=== PATIENT | female | born 1990 | race American Indian/Alaskan Native ===

== ENCOUNTER 2017-01-28 17:08 | Inpatient (IN) | payer MEDICAID, SELFPAY ==
[2017-01-28 19:10] LABS: Basophils % (Auto) 1.8 % (0.0-1.8); Eosinophils % (Auto) 0.1 % (0.0-4.3); Hematocrit 43.5 % (30.3-42.9); Hemoglobin 14.6 gm/dl (10.1-14.3); Mean Corpuscular HGB Conc 34 % (30-34); Mean Corpuscular Hemoglobin 30 pg (28-32); Mean Corpuscular Volume 90 fl (79-97); Platelet Count 211 K/mm3 (140-440); Red Blood Count 4.86 M/mm3 (3.65-5.03); Red Cell Distribution Width 14.5 % (13.2-15.2); White Blood Count 10.6 K/mm3 (4.5-11.0)
[2017-01-28 19:26] LABS: Anion Gap 16 mmol/L; Blood Urea Nitrogen 15 mg/dL (7-17); Calcium 9.7 mg/dL (8.4-10.2); Carbon Dioxide 27 mmol/L (22-30); Chloride 100.6 mmol/L (98-107); Glucose 88 mg/dL (65-100); Potassium 4.6 mmol/L (3.6-5.0); Sodium 139 mmol/L (137-145)
[2017-01-28 22:01] LABS: Bilirubin,Urine NEG (Negative); Blood,Urine NEG (Negative); Ketones,Urine NEG (Negative); Leukocyte Esterase,Urine NEG (Negative); Mucus,Urine 1+ /HPF; Nitrite,Urine NEG (Negative); Protein,Urine <15 mg/dL mg/dL (Negative); Urobilinogen,Urine < 2.0 mg/dL (<2.0)
[2017-01-28] MEDS ORDERED: MORPHINE IV ONE (22:36)
[2017-01-28] MEDS ORDERED: ZOFRAN IV ONE (22:36)
--- NOTE | 2017-01-28 22:40 | Emergency Department Report ---
HPI - General Chief Complaint: Urogenital-Female Time Seen by Provider: 01/28/17 22:23 - HPI HPI: Room 2 Is a 26-year-old female presenting with a chief complaint of right lower quadrant abdominal pain. Patient states her symptoms began yesterday with pain in the right lower quadrant described sharpened all in nature. Patient states the pain has been intermittent lasting hours. The patient admits to nausea and vomiting. Patient denies any history of fever. Patient denies vaginal bleeding or vaginal discharge. Patient states her last cycle occurred 2016 and was within normal limits. Location: Right Lower quadrant Duration: 2 days Quality: sharp and dull Severity: Moderate Modifying factors: [see above] Context: [see above] Mode of transportation: [not driving] ED Past Medical Hx - Past Medical History Hx Seizures: Yes (CHILDHOOD) Additional medical history: ovarian cyst. HYPOGLYCEMIA. ANEMIA - Surgical History Past Surgical History?: No Additional Surgical History: bilateral salpingectomy, left ovarian cystectomy tubo ovarian abscess surgically drained in the past - Family History Family history: no significant - Social History Smoking Status: Never Smoker Substance Use Type: None - Medications Home Medications: Home Medications Medication Instructions Recorded Confirmed Last Taken Type No Known Home Medications [No 01/28/17 01/28/17 Unknown History Reported Home Medications] ED Review of Systems ROS: Stated complaint: STOMACH/LWR ABD PAIN Other details as noted in HPI Comment: All other systems reviewed and negative Constitutional: denies: chills, fever Eyes: denies: eye pain, eye discharge, vision change ENT: denies: ear pain, throat pain Respiratory: denies: cough, wheezing Cardiovascular: denies: chest pain, palpitations Endocrine: no symptoms reported Gastrointestinal: abdominal pain, nausea, vomiting Genitourinary: denies: urgency, dysuria, discharge Musculoskeletal: denies: back pain, joint swelling, arthralgia Skin: denies: rash, lesions Neurological: denies: headache, weakness, paresthesias Psychiatric: denies: anxiety, depression Hematological/Lymphatic: denies: easy bleeding, easy bruising Physical Exam - Physical Exam Vital Signs: Vital Signs 01/28/17 18:35 Temperature 99.1 F Pulse Rate 78 Respiratory 18 Rate Blood Pressure 107/69 O2 Sat by Pulse 100 Oximetry Physical Exam: GENERAL: The patient is well-developed well-nourished female lying on stretcher not appearing to be in acute distress. [] HEENT: Normocephalic. Atraumatic. Extraocular motions are intact. Patient has moist mucous membranes. NECK: Supple. Trachea midline CHEST/LUNGS: Clear to auscultation. There is no respiratory distress noted. HEART/CARDIOVASCULAR: Regular. There is no tachycardia. There is no gallop rub or murmur. ABDOMEN: Abdomen is soft, with tenderness to palpation in the right lower quadrant. Patient has normal bowel sounds. There is no abdominal distention. SKIN: There is no rash. There is no edema. There is no diaphoresis. NEURO: The patient is awake, alert, and oriented. The patient is cooperative. The patient has normal speech MUSCULOSKELETAL: There is no CVA tenderness. There is no evidence of acute injury. ED Course Vital Signs 01/28/17 18:35 Temperature 99.1 F Pulse Rate 78 Respiratory 18 Rate Blood Pressure 107/69 O2 Sat by Pulse 100 Oximetry - Consultations Consultation #1: 01/29/17 00:52 Surgery paged 01/29/17 01:[address] Massey-performing a CT abdomen and pelvis with by mouth contrast only and repeating the CBC in the a.m. States he will consult on the patient but did have AERIAL GUNNER SUPERINTENDENT or hospitalist admit Consultation #2: 01/29/17 01:04 [employer] AERIAL GUNNER SUPERINTENDENT paged 01/29/17 01:11 Case discussed with nurse field technical assistant Marci Pereyra. States that Dr. Wilde is covering for them tonight. Dr Wilde paged 01/29/17 01:[address] Wilde- recommends hospitalist admit and he will consult ED Medical Decision Making - Lab Data Result diagrams: 01/28/17 18:51 01/28/17 18:51 Laboratory Tests 01/28/17 01/28/17 01/28/17 18:51 18:51 18:51 WBC 10.6 RBC 4.86 Hgb 14.6 H Hct 43.5 H MCV 90 MCH 30 MCHC 34 RDW 14.5 Plt Count 211 Lymph % (Auto) 16.1 Bea[place]gard % (Auto) 6.0 Eos % (Auto) 0.1 Baso % (Auto) 1.8 Lymph # 1.7 Bea[place]gard # 0.6 Eos # 0.0 Baso # 0.2 H Seg Neutrophils % 76.0 H Seg Neutrophils # 8.1 H Sodium 139 Potassium 4.6 Chloride 100.6 Carbon Dioxide 27 Anion Gap 16 BUN 15 Creatinine 0.6 L Estimated GFR > 60 BUN/Creatinine Ratio 25.00 Glucose 88 Calcium 9.7 HCG, Qual Negative Urine Color Urine Turbidity Urine pH Ur Specific Carson Urine Protein Urine Glucose (UA) Urine Ketones Urine Blood Urine Nitrite Urine Bilirubin Urine Urobilinogen Ur Leukocyte Esterase Urine WBC (Auto) Urine RBC (Auto) U Epithel Cells (Auto) Urine Mucus 01/28/17 Unknown WBC RBC Hgb Hct MCV MCH MCHC RDW Plt Count Lymph % (Auto) Bea[place]gard % (Auto) Eos % (Auto) Baso % (Auto) Lymph # Bea[place]gard # Eos # Baso # Seg Neutrophils % Seg Neutrophils # Sodium Potassium Chloride Carbon Dioxide Anion Gap BUN Creatinine Estimated GFR BUN/Creatinine Ratio Glucose Calcium HCG, Qual Urine Color Yellow Urine Turbidity Clear Urine pH 6.0 Ur Specific Carson 1.021 Urine Protein <15 mg/dl Urine Glucose (UA) Neg Urine Ketones Neg Urine Blood Neg Urine Nitrite Neg Urine Bilirubin Neg Urine Urobilinogen < 2.0 Ur Leukocyte Esterase Neg Urine WBC (Auto) 1.0 Urine RBC (Auto) 1.0 U Epithel Cells (Auto) < 1.0 Urine Mucus 1+ - Radiology Data Radiology results: report reviewed (CT abdomen pelvis, pelvic ultrasound), image reviewed (CT abdomen and pelvis, pelvic ultrasound) CT abdomen and pelvis (read by radiologist)-what appears to be the appendix is top normal in caliber at 6 mm. It is fluid-filled with mildly enhancing wall. No surrounding inflammation. There is overlap in the imaging appearance of normal and abnormal appendix. Consider further evaluation and follow-up if there is continued clinical concern for appendiceal pathology. I did 2 separate cystic lesions or large lobulated right ovarian/adnexal lesion. Moderate free pelvic fluid. Consider complex cystic lesion, consider possible ruptured ovarian cyst. Ileum this region is mildly fluid filled and prominent and rectosigmoid colon in this region as thick-walled. Consider reactive ileus/ enterocolitis. Consider pelvic ultrasound for further characterization if there is continued clinical concern. Pelvic ultrasound. This is read by radiologist)-left oophorectomy. Complex right ovarian cystic lesions felt to correspond to findings on CT scan. Consider complex cyst. Also consider process such as endometrioma. Cannot exclude underlying neoplastic etiology. MRI may be helpful for further characterization there is no indication to MRI. There does appear to be flow in the right adnexa. - Differential Diagnosis acute appendicitis, ovarian torsion Critical care attestation.: If time is entered above; I have spent that time in minutes in the direct care of this critically ill patient, excluding procedure time. ED Disposition Clinical Impression: Right lower quadrant abdominal pain, Right adnexal tenderness Disposition: OP ADMITTED IP TO THIS HOSP Is pt being admited?: Yes Does the pt Need Aspirin: No Condition: Fair Time of Disposition: 01:22 (hospitalist paged)
--- NOTE | 2017-01-29 00:09 | Cat Scan Report ---
FINAL REPORT PROCEDURE: CT ABDOMEN PELVIS W CON TECHNIQUE: Computerized axial tomography of the abdomen and pelvis was performed after the IV injection of iodinated nonionic contrast. HISTORY: Right lower quadrant abdominal pain. COMPARISON: CT scan dated 03/08/2013. Images available but report not available at this time. FINDINGS: Visualized lower thorax: No significant abnormality. Liver: Normal size and attenuation. Spleen: Normal size and attenuation. Gallbladder and biliary system: Normal. Pancreas: Normal. Adrenals: Normal. Kidneys: Normal. GI tract: The appendix measures 6 millimeters and is fluid-filled with enhancing wall, no surrounding stranding (axial image 122, coronal images 55-71). Mildly prominent and fluid-filled loops of ileum in the pelvis. Colon to the descending colon is filled with stool. Rectosigmoid colon is thick-walled. Lymph nodes and mesentery: Normal. Vasculature: Normal. Bladder: Normal. Reproductive organs: Either 2 separate cystic lesions or lobulated cystic lesion in the right pelvis/adnexal region measuring 8 x 3.4 centimeters. Peritoneum: Moderate free fluid in the pelvis. Musculoskeletal structures: Slight L5-S1 disc bulge. Other: None. IMPRESSION: What appears to be the appendix is top normal in caliber at 6 millimeters (normal 6 millimeters or less). It is fluid-filled with mildly enhancing wall. No surrounding inflammation. There is overlap in the imaging appearance of normal and abnormal appendix. Consider further evaluation and followup if there is continued clinical concern for appendiceal pathology. Either 2 separate cystic lesions or a large lobulated right ovarian/adnexal lesion. Moderate free pelvic fluid. Consider complex cystic lesion, consider possible ruptured ovarian cyst. Ileum this region is mildly fluid-filled and prominent, and rectosigmoid colon in this region is thick-walled. Consider reactive ileus/enterocolitis. Consider pelvic ultrasound for further characterization if there is continued clinical concern.
--- NOTE | 2017-01-29 00:46 | Ultrasound Report ---
FINAL REPORT PROCEDURE: US transabdominal and transvaginal TECHNIQUE: Real-time transabdominal sonography in multiple planes of the pelvis was performed. The pelvic structures, especially the ovaries were not optimally visualized. Transvaginal sonography was then performed to better evaluate the structures and/or abnormalities described below with image documentation. CPT 43336 and 26599 HISTORY: Right pelvic pain. COMPARISON: CT scan dated 01/28/2017. FINDINGS: UTERUS Size: 9.1 x 4.8 centimeters. Endometrial thickness: 9.4 millimeters. Orientation: anteverted. Cervix: Normal. Fibroids/masses: None. RIGHT Ovary: 6 x 5.3 x 4.7 centimeters. Appearance: Complex heterogeneous 4.2 x 3 x 3.8 centimeter hypoechoic lesion with striations. Second 2.7 x 1.9 x 2.1 centimeter similar complex heterogeneous lesion. There does appear to be flow in the right adnexa. LEFT Ovary: Left oophorectomy. Pelvic fluid: Moderate free pelvic fluid. Other: None. IMPRESSION: Left oophorectomy. Complex right ovarian cystic lesions felt to correspond to findings on CT scan. Consider complex cyst. Also consider process such is endometrioma. Cannot exclude underlying neoplastic etiology. MRI may be helpful for further characterization if there is no contraindication to MRI. Moderate free pelvic fluid.
--- NOTE | 2017-01-29 00:47 | Ultrasound Report ---
FINAL REPORT PROCEDURE: US transabdominal and transvaginal TECHNIQUE: Real-time transabdominal sonography in multiple planes of the pelvis was performed. The pelvic structures, especially the ovaries were not optimally visualized. Transvaginal sonography was then performed to better evaluate the structures and/or abnormalities described below with image documentation. CPT 46884 and [id number] HISTORY: Right pelvic pain. COMPARISON: CT scan dated 01/28/2017. FINDINGS: UTERUS Size: 9.1 x 4.8 centimeters. Endometrial thickness: 9.4 millimeters. Orientation: anteverted. Cervix: Normal. Fibroids/masses: None. RIGHT Ovary: 6 x 5.3 x 4.7 centimeters. Appearance: Complex heterogeneous 4.2 x 3 x 3.8 centimeter hypoechoic lesion with striations. Second 2.7 x 1.9 x 2.1 centimeter similar complex heterogeneous lesion. There does appear to be flow in the right adnexa. LEFT Ovary: Left oophorectomy. Pelvic fluid: Moderate free pelvic fluid. Other: None. IMPRESSION: Left oophorectomy. Complex right ovarian cystic lesions felt to correspond to findings on CT scan. Consider complex cyst. Also consider process such is endometrioma. Cannot exclude underlying neoplastic etiology. MRI may be helpful for further characterization if there is no contraindication to MRI. Moderate free pelvic fluid.
--- NOTE | 2017-01-29 05:18 | Cat Scan Report ---
FINAL REPORT EXAM: CT ABDOMEN PELVIS WO CON HISTORY: right lower quadrant abdominal pain TECHNIQUE: Standard delayed enhanced CT of the abdomen and pelvis. Coronal and sagittal reconstruction was also performed. Contrast: Readi-Cat given as oral. Patient had an enhanced CT performed several hours previous (100 cc Omnipaque 300 given IV) with excreted tracer is still seen on the current exam. PRIORS: CT a/P 01/28/2017 at 2312 hours, pelvic ultrasound 01/28/2017 FINDINGS: Within the abdomen, the liver, spleen, pancreas, adrenal glands, and kidneys are unremarkable. The gallbladder now contains high density material consistent with vicarious excretion of previous contrast. No evidence for retroperitoneal or pelvic lymphadenopathy is seen. The bowel loops have normal caliber. No soft tissue mass, loculated fluid collection, inflammatory change, or free air is seen within the abdomen or pelvis. The appendix is normal. No inflammatory process in the area of the cecum is seen. Within the pelvis, the bladder is filled with excreted contrast but is otherwise unremarkable. The uterus is normal. The cystic lesions identified in the pelvis previously are again noted, similar to the previous study. No evidence for mass or lymphadenopathy is seen in the pelvis. Low-density free fluid in the pelvis is again seen. Images through the upper abdomen include the lung bases which are expanded and clear. There is a small low-density pericardial effusion present anteriorly. Bony structures show no focal abnormalities and are intact. IMPRESSION: No significant interval change. Pelvic cystic lesions and a small amount of fluid in the pelvis are again noted, unchanged.
--- NOTE | 2017-01-29 06:08 | Admit Criteria Form ---
Admission Criteria Documentation: ABDOMINAL PAIN Clinical Indications for Admission to Inpatient Care (Place 'X' for any and all applicable criteria): Admission is indicated for ANY ONE of the following(1)(2)(3)(4)(5): [x ]I. Inpatient admission required rather than observation care (Also use Abdominal Pain: Observation Care, as appropriate) because of ANY ONE of the following: [ ]a) Severe pain requiring acute inpatient management [ ]b) Identification of etiology/finding that requires inpatient care (eg, aortic dissection, free air) [ ]c) Absent bowel sounds with complete ileus(6) [ ]d) Suspected toxic megacolon [ ]e) Severe electrolyte abnormalities requiring inpatient care [ ]f) High fever or infection requiring inpatient admission as indicated by ANY ONE of following(7)(8): [ ] i) Appropriate outpatient or observational care antimicrobial treatment unavailable, not effective, or not feasible [ ] ii) Documented bacteremia [ ] iii) Temperature > 104.9 degrees F (oral) [ ] iv) T >103.1 F (oral) or < 96.8 F(rectal) that does not respond to all emergency treatment measures [ ]g) Signs of intestinal obstruction [B] [ ]h) Hemodynamic instability [ ]i) IV fluid to replace significant ongoing losses (greater than 3 L/m2 per day) (12)(13) [ ]j) Percutaneous or open drainage (eg, abscess, biliary tract ) procedures [ ]k) Parenteral nutrition regimen that must be implemented on inpatient basis [x ]l) Other condition,treatment or monitoring requiring inpatient admission. [ ]II. Peritoneal signs present [ ]III. Surgery needed that cannot be performed on an ambulatory basis. [ ]IV. Evaluation requires patient to not eat or drink for extended period ( eg, more than 24 hours). [ ]V. Contraindications and/or Inappropriate clinical situations for Observational Care in patients with abdominal pain, when ANY ONE of the following is required: [ ]a) Thorough evaluation is required to prevent catastrophic events due to delays in diagnosing (e.g.Mesenteric ischemia) 1,3 [ ]b) Patient with severe pathology or with chronic symptoms unlikely to improve in the ED stay (3) [ ]. General contraindications and/or Inappropriate clinical situations for Observational Care in patients with abdominal pain, when ANY ONE of the following is required: [ ]a) Prediction of prolongation of LOS based on ANY ONE of the following may be considered as a contraindication for observational care 2, 3, 4, 5, 6, 7, 8, 9, 10, 11 [ ]i) Age > 65 yrs. [ ]ii) Patient arriving by ambulance [ ]iii) Patient with high acuity [ ]iv) Patient requiring vital sign monitoring [ ]v) Patient on IV medication [ ]b) Systolic blood pressures 180mmHg 3,12 [ ]c) Patient with altered mental status including delirium and other alteration of consciousness, (3) [ ]d) Patient whose discharge disposition will be to a retirement home or rehabilitation home should not be managed in Emergency Department Observation Unit. CMS rule requires 3 days hospital stay before such placement.3,13 [ ]e) Patient with failure to thrive due to broad array of etiologies 3,16,17 [ ]f) Inability to ambulate 3,14 Extended stay beyond goal length of stay may be needed for(2)(3): [ ]a) Persistent abdominal pain with suspected intra-abdominal process [ ]b) Diagnosed condition requiring continued stay (e.g., pancreatitis, complicated diverticulitis) [ ]c) Surgery (e.g., colectomy) The original [employer] content created by [employer] has been revised. The portions of the content which have been revised are identified through the use of italic text or in bold, and [facility] has neither reviewed nor approved the modified material.All other unmodified content is copyright [employer]. Please see references footnoted in the original [employer] edition 2016
[2017-01-29] MEDS ORDERED: DULCOLAX PR PRN (07:35)
[2017-01-29] MEDS ORDERED: MORPHINE IV PRN (07:35)
[2017-01-29] MEDS ORDERED: TYLENOL PO PRN (07:35)
[2017-01-29] MEDS ORDERED: MILK OF MAGNESIA PO PRN (07:35)
[2017-01-29] MEDS ORDERED: DILAUDID IV PRN (07:35)
[2017-01-29] MEDS: ZOFRAN IV PRN ×2 (10:40→20:44)
[2017-01-29] MEDS: NACL 0.9% 1000 ML 1,000 ML IV SCH ×2 (10:41→22:30)
[2017-01-29 10:56] LABS: INR 1.14 (0.87-1.13)
--- NOTE | 2017-01-29 11:25 | Progress Note ---
Assessment and Plan full consult dictated 26 y/o female past hx of PID. s/p L salpingo ophorectomy in past secondary to TOA. s/p R salpingectomy. c/o RLQ abd pain PE - pain more so in R pelvic region than in RLQ CT abd - large R ovarian cyst with fluid in cul-de-sac. appendix neg surrounding inflammation r/o R ovarian pathology await freight adjuster eval Selected Entries 01/29/17 10:30 Temperature 98.7 F Pulse Rate [ 58 L From Monitor] Respiratory 18 Rate Blood Pressure 104/66 [Left Arm] Laboratory Tests 01/28/17 01/28/17 01/28/17 18:51 18:51 Unknown WBC 10.6 Hgb 14.6 H Hct 43.5 H PT INR Sodium 139 Potassium 4.6 Chloride 100.6 Carbon Dioxide 27 Anion Gap 16 BUN 15 Creatinine 0.6 L Urine Turbidity Clear 01/29/17 10:01 WBC Hgb Hct PT 14.5 INR 1.14 H Sodium Potassium Chloride Carbon Dioxide Anion Gap BUN Creatinine Urine Turbidity Objective Vital Signs - 12hr 01/29/17 01/29/17 01/29/17 07:45 09:18 10:30 Temperature 98.5 F 98.7 F Pulse Rate 65 Pulse Rate [ 58 L From Monitor] Respiratory 16 18 Rate Blood Pressure 104/66 [Left Arm] Blood Pressure 97/53 [Left] O2 Sat by Pulse 100 99 Oximetry - Labs 01/28/17 18:51 01/28/17 18:51
--- NOTE | 2017-01-29 12:31 | History and Physical Report ---
History of Present Illness Date of examination: 01/29/17 Date of admission: 01/29/17 07:35 Chief complaint: Right lower quadrant pain History of present illness: Patient is a 26 year old female with hx of Tubo-ovarian abscess surgically drained in the past, Bilateral salpingectomy who presents to the hospital with complaints right lower quadrant pain which has been going for about 2 weeks now worse in the last 24 hours from difficult to come to the hospital she describes excruciating 10 over 10 in intensity with no radiation. She denies any aggravating or alleviating factors. She denies prior episodes. She denies any fever, nausea, vomiting or diarrhea. She Discussed the pain as dull and sharp. She denies any vaginal bleeding or vaginal discharge. She did report 1 episode of blood in her stool but states that this is remote smoking a month ago. Has not recurred since then. ROS Constitutional: Reports dizziness on standing. No fever, fatigue or weight loss. Skin: No rash. Eyes: No recent vision problems or eye pain. ENT: No congestion, ear pain, or sore throat. Endocrine: No thyroid problems. Cardiovascular: No chest pain. Respiratory: No cough, shortness of breath, congestion, or wheezing. Gastrointestinal: Positive abdominal pain but not nausea, vomiting or diarrhea. Genitourinary: No dysuria. Musculoskeletal: No joint swelling. Neurologic: No seizures. Hematologic: No unusual bruising or bleeding. Psychiatric: No psychiatric problems, hallucinations or depression. All other systems reviewed and otherwise negative. Past History Past Medical History: seizures (in childhood) Past Surgical History: Other (bilateral salpingectomy, left ovarian cystectomy tubo ovarian abscess surgically drained in the past) Social history: lives with family, full code. denies: smoking, alcohol abuse, prescription drug abuse Family history: no significant family history Medications and Allergies Allergies Allergy/AdvReac Type Severity Reaction Status Date / Time metronidazole [From Flagyl] Allergy Hives Verified 01/28/17 18:31 Home Medications Medication Instructions Recorded Confirmed Last Taken Type No Known Home Medications [No 01/28/17 01/28/17 Unknown History Reported Home Medications] Active Meds: Active Medications Acetaminophen (Tylenol) 650 mg PO Q4H PRN PRN Reason: Pain MILD(1-3)/Fever >100.5/[place] Bisacodyl (Dulcolax) 10 mg AR QDAY PRN PRN Reason: Constipation unrelieved by MOM Hydromorphone HCl (Dilaudid) 0.5 mg IV Q3H PRN PRN Reason: Pain, Moderate (4-6) Sodium Chloride (Nacl 0.9% 1000 Ml) 1,000 mls @ 150 mls/hr IV DIRECT ALLEGRA Last Admin: 01/29/17 10:41 Dose: 150 mls/hr Magnesium Hydroxide (Milk Of Magnesia) 30 ml PO Q4H PRN PRN Reason: Constipation Morphine Sulfate (Morphine) 2 mg IV Q4H PRN PRN Reason: Pain, Moderate (4-6) Last Admin: 01/29/17 10:40 Dose: 2 mg Ondansetron HCl (Zofran) 4 mg IV Q8H PRN PRN Reason: N/V unrelieved by Reglan Last Admin: 01/29/17 10:40 Dose: 4 mg Exam - Physical Exam Narrative exam: VITAL SIGNS: Reviewed. GENERAL: The patient appeared well nourished and normally developed. Vital signs as documented. HEAD: No signs of head trauma. EYES: Pupils are equal. Extraocular motions intact. EARS: Hearing grossly intact. MOUTH: Oropharynx is normal. NECK: No adenopathy, no JVD. CHEST: Chest with clear breath sounds bilaterally. No wheezes, rales, or rhonchi. CARDIAC: Regular rate and rhythm. S1 and S2, without murmurs, gallops, or rubs. VASCULAR: No Edema. Peripheral pulses normal and equal in all extremities. ABDOMEN: Soft, right lower quadrant tenderness. No sign of distention. No rebound or guarding, and no masses palpated. Bowel Sounds normal. MUSCULOSKELETAL: Good range of motion of all major joints. Extremities without clubbing, cyanosis or edema. NEUROLOGIC EXAM: Alert and oriented x 3. No focal sensory or strength deficits. Speech normal. Follows commands. PSYCHIATRIC: Mood normal. SKIN: No rash or lesions. - Constitutional Vitals: Temp Pulse Resp BP Pulse Ox 98.7 F 58 L 18 104/66 99 01/29/17 10:30 01/29/17 10:30 01/29/17 10:30 01/29/17 10:30 01/29/17 10:30 Results - Labs CBC & Chem 7: 01/28/17 18:51 01/28/17 18:51 Labs: Laboratory Last Values WBC 10.6 K/mm3 (4.5-11.0) 01/28/17 18:51 RBC 4.86 M/mm3 (3.65-5.03) 01/28/17 18:51 Hgb 14.6 gm/dl (10.1-14.3) H 01/28/17 18:51 Hct 43.5 % (30.3-42.9) H 01/28/17 18:51 MCV 90 fl (79-97) 01/28/17 18:51 MCH 30 pg (28-32) 01/28/17 18:51 MCHC 34 % (30-34) 01/28/17 18:51 RDW 14.5 % (13.2-15.2) 01/28/17 18:51 Plt Count 211 K/mm3 (140-440) 01/28/17 18:51 Lymph % (Auto) 16.1 % (13.4-35.0) 01/28/17 18:51 [place] % (Auto) 6.0 % (0.0-7.3) 01/28/17 18:51 Eos % (Auto) 0.1 % (0.0-4.3) 01/28/17 18:51 Baso % (Auto) 1.8 % (0.0-1.8) 01/28/17 18:51 Lymph # 1.7 K/mm3 (1.2-5.4) 01/28/17 18:51 [place] # 0.6 K/mm3 (0.0-0.8) 01/28/17 18:51 Eos # 0.0 K/mm3 (0.0-0.4) 01/28/17 18:51 Baso # 0.2 K/mm3 (0.0-0.1) H 01/28/17 18:51 Seg Neutrophils % 76.0 % (40.0-70.0) H 01/28/17 18:51 Seg Neutrophils # 8.1 K/mm3 (1.8-7.7) H 01/28/17 18:51 PT 14.5 Sec. (12.2-14.9) 01/29/17 10:01 INR 1.14 (0.87-1.13) H 01/29/17 10:01 Sodium 139 mmol/L (137-145) 01/28/17 18:51 Potassium 4.6 mmol/L (3.6-5.0) 01/28/17 18:51 Chloride 100.6 mmol/L (98-107) 01/28/17 18:51 Carbon Dioxide 27 mmol/L (22-30) 01/28/17 18:51 Anion Gap 16 mmol/L 01/28/17 18:51 BUN 15 mg/dL (7-17) 01/28/17 18:51 Creatinine 0.6 mg/dL (0.7-1.2) L 01/28/17 18:51 Estimated GFR > 60 ml/min 01/28/17 18:51 BUN/Creatinine Ratio 25.00 % 01/28/17 18:51 Glucose 88 mg/dL (65-100) 01/28/17 18:51 Calcium 9.7 mg/dL (8.4-10.2) 01/28/17 18:51 HCG, Qual Negative (Negative) 01/28/17 18:51 Urine Color Yellow (Yellow) 01/28/17 Unknown Urine Turbidity Clear (Clear) 01/28/17 Unknown Urine pH 6.0 (5.0-7.0) 01/28/17 Unknown Ur Specific [place] 1.021 (1.003-1.030) 01/28/17 Unknown Urine Protein <15 mg/dl mg/dL (Negative) 01/28/17 Unknown Urine Glucose (UA) Neg mg/dL (Negative) 01/28/17 Unknown Urine Ketones Neg mg/dL (Negative) 01/28/17 Unknown Urine Blood Neg (Negative) 01/28/17 Unknown Urine Nitrite Neg (Negative) 01/28/17 Unknown Urine Bilirubin Neg (Negative) 01/28/17 Unknown Urine Urobilinogen < 2.0 mg/dL (<2.0) 01/28/17 Unknown Ur Leukocyte Esterase Neg (Negative) 01/28/17 Unknown Urine WBC (Auto) 1.0 /HPF (0.0-6.0) 01/28/17 Unknown Urine RBC (Auto) 1.0 /HPF (0.0-6.0) 01/28/17 Unknown U Epithel Cells (Auto) < 1.0 /HPF (0-13.0) 01/28/17 Unknown Urine Mucus 1+ /HPF 01/28/17 Unknown - Imaging and Cardiology CT scan - abdomen: image reviewed (adnexal mass on the right) Assessment and Plan Assessment and plan: Patient is a 26 year old female with hx of Tubo-ovarian abscess surgically drained in the past, Bilateral salpingectomy who presents to the hospital with complaints right lower quadrant pain which has been going for about 2 weeks now worse in the last 24 hours from difficult to come to the hospital she describes excruciating 10 over 10 in intensity with no radiation. She denies any aggravating or alleviating factors. She denies prior episodes. She denies any fever, nausea, vomiting or diarrhea. She Discussed the pain as dull and sharp. She denies any vaginal bleeding or vaginal discharge. She did report 1 episode of blood in her stool but states that this is remote smoking a month ago. Has not recurred since then. * Right lower quadrant abdominal pain * Also unable Reactive ileus/enterocolitis per CT findings * Possible complex cystic lesion versus ruptured ovarian cyst * Status post left oophorectomy Plan * Supportive care, IV fluids, pain control * Surgical and HUMAN [employer]OURCES MGR consulted * If any fever develops will start abx, for now no indication. * DVT/GI prophylaxis * Advance Directives: Yes Plan of care discussed with patient/family: Yes
--- NOTE | 2017-01-29 17:22 | Consultation ---
History of Present Illness Consult date: 01/29/17 Reason for consult: pelvic pain, ovarian cyst History of present illness: Asked to see this 26-year-old G0 who presented with right lower quadrant abdominal pain x ~ 48 hrs. pain initially achy, dull and constant. Initially severe but appears improved at this time. No fever or chills currently no nausea vomiting. She gives a history of associated diarrhea and gastritis with this pain. CT abdomen obtained shows normal appendix which is fluid-filled was mildly enhancing wall. Surrounding inflammation. Overlapping imaging from normal and abnormal appendix. Continued concern for appendiceal pathology. Either to separate cystic lesions or large lobulated right ovarian lesion. Moderate free fluid. Consider complex cystic lesion. In this region is mildly fluid-filled and prominent, consider rectosigmoid colon and the Silastic was considered reactive ileus enterocolitis Ultrasound obtained shows a 9 cm uterus with 9.4 mm stripe. Right ovary shows complex heterogeneous 4 cm hyperechoic lesion with striations. Another 3 cm complex heterogeneous lesion is also seen. As appeared to be flow in the right adnexa Moderate free fluid is seen. Impression is complex right ovarian cystic lesion felt to correspond to find in in CT. Consider complex cyst also consider endometrioma cannot exclude underlying neoplastic etiology MRI may be helpful. She is being seen by Gen surgery Past History Past Medical History: other (Gastritis) Past Surgical History: CRM FUNCTIONAL ANALYST/uterine surgery (Laparotomy for ?TOA ?Ovarian cystectomy, Bilateral salpingectomy via laparotomy) CRM FUNCTIONAL ANALYST History: chlamydia, gonorrhea. denies: hepatitis B, hepatitis C, HIV Family/Genetic History: cancer (Mother with uterine cancer status post chemotherapy, aunts and grandmother with breast cancer) Social history: , full code. denies: smoking, alcohol abuse, prescription drug abuse, IV drug use - Obstetrical History : 0 Medications and Allergies Allergies Allergy/AdvReac Type Severity Reaction Status Date / Time metronidazole [From Flagyl] Allergy Hives Verified 01/28/17 18:31 Home Medications Medication Instructions Recorded Confirmed Last Taken Type Ibuprofen [Motrin 600 MG tab] 600 mg PO Q8H PRN #30 tablet 01/29/17 Unknown Rx oxyCODONE /ACETAMINOPHEN [Percocet 1 tab PO Q6HR PRN #30 tablet 01/29/17 Unknown Rx 5/325] Active Meds: Active Medications Acetaminophen (Tylenol) 650 mg PO Q4H PRN PRN Reason: Pain MILD(1-3)/Fever >100.5/[place] Bisacodyl (Dulcolax) 10 mg GA QDAY PRN PRN Reason: Constipation unrelieved by MOM Hydromorphone HCl (Dilaudid) 0.5 mg IV Q3H PRN PRN Reason: Pain, Moderate (4-6) Last Admin: 01/29/17 15:32 Dose: 0.5 mg Sodium Chloride (Nacl 0.9% 1000 Ml) 1,000 mls @ 150 mls/hr IV DIRECT ALLEGRA Last Admin: 01/29/17 10:41 Dose: 150 mls/hr Magnesium Hydroxide (Milk Of Magnesia) 30 ml PO Q4H PRN PRN Reason: Constipation Morphine Sulfate (Morphine) 2 mg IV Q4H PRN PRN Reason: Pain, Moderate (4-6) Last Admin: 01/29/17 10:40 Dose: 2 mg Ondansetron HCl (Zofran) 4 mg IV Q8H PRN PRN Reason: N/V unrelieved by Reglan Last Admin: 01/29/17 10:40 Dose: 4 mg Tramadol HCl (Ultram) 50 mg PO Q6H PRN PRN Reason: Pain, Moderate (4-6) Review of Systems Constitutional: no fever, no chills Cardiovascular: no chest pain, no syncope, no lightheadedness, no shortness of breath, no dyspnea on exertion Respiratory: no cough, no shortness of breath, no dyspnea on exertion Gastrointestinal: abdominal pain, no nausea, no vomiting - Vital Signs Vital signs: Vital Signs Temp Pulse Resp BP Pulse Ox 99.1 F 78 18 107/69 100 01/28/17 18:35 01/28/17 18:35 01/28/17 18:35 01/28/17 18:35 01/28/17 18:35 Temp Pulse Resp BP Pulse Ox 98.7 F 57 L 18 101/58 99 01/29/17 14:25 01/29/17 14:25 01/29/17 14:25 01/29/17 14:25 01/29/17 10:30 - Physical Exam Cardiovascular: Regular rate, Normal S1, Normal S2 Lungs: Positive: Clear to auscultation, Normal air movement Abdomen: Positive: normal appearance, soft, tenderness (mild suprapubic tenderness on palpation). Negative: guarding, rigidity Adnexa: both: normal Results Result Diagrams: 01/28/17 18:51 01/28/17 18:51 Abnormal lab results 01/29/17 Range/Units 10:01 INR 1.14 H (0.87-1.13) All other labs normal. Assessment and Plan A: 26-year-old G0 with right ovarian cyst P: -Patient has 2 individual cysts on her Right ovary measuring ~ 4 cm and ~ 2 cm respectively. Appears to have normal flow but striations noted. Discussed above in detail with the patient and her partner. Although risk of malignancy is low, she has positive family history of uterine malignancy (her mother). I have Ordered CA-125 which should be back in 48-72 hours. Informed her that if CA -125 is negative, then I would recommend repeating an ultrasound in 4-6 weeks. If she has a persistent cyst then I would recommend ovarian cystectomy, note that she only has one ovary remaining. -Patient and her partner have agreed to this. I advised she call [facility]/ CRM FUNCTIONAL ANALYST or her most current CRM FUNCTIONAL ANALYST provider for scheduled follow-up [place]. [facility] CRM FUNCTIONAL ANALYST will have access to records and will be able to review her CA-125 result. -Patient is clear from CRM FUNCTIONAL ANALYST standpoint for discharge home, have left a prescription for Percocet in the patient's chart. -Thanks for the consult, please call with questions. - Patient Problems (1) Ovarian cyst Current Visit: Yes Status: Acute
[2017-01-29] MEDS: ULTRAM PO PRN (22:34)
[2017-01-30] MEDS: NACL 0.9% 1000 ML 1,000 ML IV SCH ×2 (03:55→10:39)
--- NOTE | 2017-01-30 07:18 | Consultation ---
REASON FOR CONSULTATION: Rule out appendicitis. HISTORY OF PRESENT ILLNESS: The patient is a 26-year-old healthy female who presented to the Emergency Room with recent onset of right lower quadrant abdominal pain accompanied by nausea and vomiting. Denies any vaginal discharge, dysuria or fever. PAST MEDICAL HISTORY: Negative. PAST SURGICAL HISTORY: Status post PID in the past. The patient is status post left salpingo-oophorectomy secondary to tubo-ovarian abscess. Also, status post right salpingectomy again apparently related to pelvic inflammatory disease episode. ALLERGIES: ALLERGIC TO FLAGYL, WHICH CAUSES HER HIVES. MEDICATIONS: Takes no medications. FAMILY HISTORY: Negative. SOCIAL HISTORY: Denies any smoking or drinking. REVIEW OF SYSTEMS: Noncontributory other than what was previously mentioned. PHYSICAL EXAMINATION: GENERAL: At this time reveals the patient to be awake, alert, cooperative. At this time, states she is \\"feeling better.\\" VITAL SIGNS: Show her to be afebrile with a temperature of 98.7, blood pressure 104/66, pulse of 58, respirations of 18. ABDOMEN: Examination of the abdomen reveals to be flat and soft. There is some localized tenderness, but more so over the right pelvic area and then the right lower quadrant. Bowel sounds are present. LABORATORY DATA: Lab work at present includes a CBC which shows a white count of 10.6, H and H is 14.6 and 43/5. Electrolytes are essentially within normal limits. Urinalysis is clear. A CT scan of the abdomen has been performed, which I have reviewed with the radiologist. The appendix itself does not show any surrounding inflammation, no surrounding inflammation either is noted around the cecum. There is a large right ovarian cyst noted. Some fluid was also noted in the cul-de-sac, possibly secondary to rupturing of a hemorrhagic cyst. ASSESSMENT AND PLAN: At this time is that of a 26-year-old female, lower pelvic pain does not appear to be appendicitis at this time. Rule out possible ovarian pathology as source of pain. Awaiting CLINICAL NURSING PROFESSOR evaluation. I will follow with you. Thank you very much for consultation. JOB# [id number] FP/NTS
[2017-01-30] MEDS: ULTRAM PO PRN ×2 (07:31→13:25)
[2017-01-30 07:35] LABS: Basophils % (Auto) 0.5 % (0.0-1.8); Eosinophils % (Auto) 0.5 % (0.0-4.3); Hematocrit 37.1 % (30.3-42.9); Hemoglobin 12.1 gm/dl (10.1-14.3); Mean Corpuscular HGB Conc 33 % (30-34); Mean Corpuscular Hemoglobin 29 pg (28-32); Mean Corpuscular Volume 90 fl (79-97); Platelet Count 176 K/mm3 (140-440); Red Blood Count 4.12 M/mm3 (3.65-5.03); Red Cell Distribution Width 14.2 % (13.2-15.2); White Blood Count 8.4 K/mm3 (4.5-11.0)
--- NOTE | 2017-01-30 07:48 | Discharge Summary ---
Providers - Providers Date of Admission: 01/29/17 07:35 Date of discharge: 01/30/17 Attending physician: NISHI BERRY Primary care physician: [facility] Hospitalization Condition: Fair Hospital course: Patient is a 26 year old female with hx of Tubo-ovarian abscess surgically drained in the past, Bilateral salpingectomy who presents to the hospital with complaints right lower quadrant pain which has been going for about 2 weeks now worse in the last 24 hours from difficult to come to the hospital she describes excruciating 10 over 10 in intensity with no radiation. She denies any aggravating or alleviating factors. She denies prior episodes. She denies any fever, nausea, vomiting or diarrhea. She Discussed the pain as dull and sharp. She denies any vaginal bleeding or vaginal discharge. She did report 1 episode of blood in her stool but states that this is remote smoking a month ago. Has not recurred since then. CT abdomen obtained shows normal appendix which is fluid-filled was mildly enhancing wall. Surrounding inflammation. Overlapping imaging from normal and abnormal appendix. Continued concern for appendiceal pathology. Either to separate cystic lesions or large lobulated right ovarian lesion. Patient had ultrasound which showed a 9 cm uterus with 9.4 mm stripe. Right ovary shows complex heterogeneous 4 cm hyperechoic lesion with striations. Another 3 cm complex heterogeneous lesion is also seen. As appeared to be flow in the right adnexa. Patient was seen by STEREOTYPER HELPER which felt that patient could be managed as an outpatient. Patient had CA-125 drawn and will follow up as an outpatient. Patient will be sent home today with adequate pain control and will follow with STEREOTYPER HELPER. Patient was evaluated by surgery which felt that there was no acute pathology with the appendix. Disposition: DISCHARGED TO HOME OR SELFCARE Core Measure Documentation - Palliative Care Palliative Care/ Comfort Measures: Not Applicable - Core Measures Any of the following diagnoses?: none Exam - Constitutional Vitals: Temp Pulse Resp BP Pulse Ox 99.0 F 58 L 16 93/55 95 01/30/17 00:18 01/30/17 00:18 01/30/17 00:18 01/30/17 00:18 01/30/17 00:18 General appearance: Present: mild distress - EENT Eyes: Present: PERRL, EOM intact ENT: hearing intact, clear oral mucosa - Neck Neck: Present: supple, normal ROM - Respiratory Respiratory effort: normal Respiratory: bilateral: CTA - Cardiovascular Rhythm: regular Heart Sounds: Present: S1 & S2 - Extremities Extremities: no ischemia, No edema - Abdominal General gastrointestinal: Present: soft, non-tender, non-distended, normal bowel sounds - Musculoskeletal Musculoskeletal: strength equal bilaterally - Psychiatric Psychiatric: appropriate mood/affect, intact judgment & insight - Neurologic Neurologic: CNII-XII intact, moves all extremities Plan Activity: advance as tolerated Weight Bearing Status: Weight Bear as Tolerated Diet: low fat, low cholesterol, low salt Follow up with: PRIMARY CAREMD [Primary Care Provider] - 7 Days JONATHAN DIANA MD [Staff Physician] - 7 Days Prescriptions: Ibuprofen [Motrin 600 MG tab] 600 mg PO Q8H PRN #30 tablet PRN Reason: Pain oxyCODONE /ACETAMINOPHEN [Percocet 5/325] 1 tab PO Q6HR PRN #30 tablet PRN Reason: Pain
[2017-01-30 07:49] LABS: Anion Gap 15 mmol/L; BUN/Creatinine Ratio 16.66; Blood Urea Nitrogen 10 mg/dL (7-17); Calcium 8.1 mg/dL (8.4-10.2); Carbon Dioxide 23 mmol/L (22-30); Chloride 106.4 mmol/L (98-107); Glucose 80 mg/dL (65-100); Potassium 4.3 mmol/L (3.6-5.0); Sodium 140 mmol/L (137-145)
[2017-01-30 08:49] VITALS: BP 92/55
--- NOTE | 2017-01-30 13:59 | Progress Note ---
Assessment and Plan Pt feeling well without compl. kendal diet Abd soft wbc 8.4 Immigration Lawyer eval noted surgically stable f/u with Immigration Lawyer Selected Entries 01/30/17 08:00 Temperature 98.3 F Pulse Rate [ 51 L Apical] Blood Pressure 92/55 [Left Arm] Laboratory Tests 01/30/17 07:15 WBC 8.4 Hgb 12.1 Hct 37.1 D Objective Vital Signs - 12hr 01/30/17 08:00 Temperature 98.3 F Pulse Rate [ 51 L Apical] Respiratory 18 Rate Blood Pressure 92/55 [Left Arm] O2 Sat by Pulse 100 Oximetry - Labs 01/30/17 07:15 01/30/17 07:15 Diabetes panel 01/30/17 Range/Units 07:15 Sodium 140 (137-145) mmol/L Potassium 4.3 (3.6-5.0) mmol/L Chloride 106.4 (98-107) mmol/L Carbon Dioxide 23 (22-30) mmol/L BUN 10 (7-17) mg/dL Creatinine 0.6 L (0.7-1.2) mg/dL Glucose 80 (65-100) mg/dL Calcium 8.1 L D (8.4-10.2) mg/dL Calcium panel 01/30/17 Range/Units 07:15 Calcium 8.1 L D (8.4-10.2) mg/dL Pituitary panel 01/30/17 Range/Units 07:15 Sodium 140 (137-145) mmol/L Potassium 4.3 (3.6-5.0) mmol/L Chloride 106.4 (98-107) mmol/L Carbon Dioxide 23 (22-30) mmol/L BUN 10 (7-17) mg/dL Creatinine 0.6 L (0.7-1.2) mg/dL Glucose 80 (65-100) mg/dL Calcium 8.1 L D (8.4-10.2) mg/dL Adrenal panel 01/30/17 Range/Units 07:15 Sodium 140 (137-145) mmol/L Potassium 4.3 (3.6-5.0) mmol/L Chloride 106.4 (98-107) mmol/L Carbon Dioxide 23 (22-30) mmol/L BUN 10 (7-17) mg/dL Creatinine 0.6 L (0.7-1.2) mg/dL Glucose 80 (65-100) mg/dL Calcium 8.1 L D (8.4-10.2) mg/dL
== END 2017-01-30 14:20 | disposition home or self-care (01) | DRG 392 ==
LOC: ED 17:08 → 2B-SURG 01-29 07:35
PROVIDERS: ADMIT Internal Medicine; ATTEND Internal Medicine
DX: R10.9 Unspecified abdominal pain (principal); N83.201 Unspecified ovarian cyst, right side; Z90.721 Acquired absence of ovaries, unilateral; Z88.8 Allergy status to other drugs, medicaments and biological substances; Z80.9 Family history of malignant neoplasm, unspecified
CPT/HCPCS: 36415; 74176; 74177; 76830; 80048; 81001; 82962; 84703; 85025; 85610; 86304; 93975; 96374; 96375; 96376; J1170; J2270; J2405; J7030; Q9967

== ENCOUNTER 2018-02-08 12:09 | Emergency (ER) | payer OTHER ==
[2018-02-08 13:26] VITALS: BP 118/72
[2018-02-08] MEDS ORDERED: TORADOL IM ONE (16:10)
--- NOTE | 2018-02-08 16:49 | Emergency Department Report ---
ED Back Pain/Injury HPI - General Chief Complaint: Back Pain/Injury Stated Complaint: LOWER BACK PAIN Time Seen by Provider: 02/08/18 16:06 Source: patient Limitations: No Limitations - History of Present Illness Initial Comments: This is a 27-year-old female nontoxic, well nourished in appearance, no acute signs of distress presents to the ED with c/o of acute lower back pain. Patient stated that the past 2 days she been lifting and developed this pain. Patient denies any radiation of pain. Patient denies any trauma. Denies any bladder or bowel instability. Denies any fever, chills, nausea, abdominal pain , vomiting, headache, stiff neck, chest pain or shortness of breath. Patient denies any urinary symptoms. Patient denies any numbness or tingling. Patient states allergies to metronidazole. Denies significant past medical history. MD Complaint: back pain -: days(s) (2) Similar Symptoms Previously: No Place: home Radiation: none Severity: mild Severity scale (0 -10): 8 Quality: aching Consistency: constant Improves With: immobilization, supine, sitting upright Worsens With: movement, walking Associated Symptoms: denies other symptoms. denies: confusion, weakness, chest pain, numbness, difficulty walking, cough, difficulty urinating, diaphoresis, incontinence, fever/chills, constipation, headaches, abdominal pain, loss of appetite, malaise, nausea/vomiting, rash, seizure, shortness of breath, syncope - Related Data Previous Rx's Medication Instructions Recorded Last Taken Type Ibuprofen [Motrin 600 MG tab] 600 mg PO Q8H PRN #30 tablet 01/29/17 Unknown Rx oxyCODONE /ACETAMINOPHEN [Percocet 1 tab PO Q6HR PRN #30 tablet 01/29/17 Unknown Rx 5/325] Cyclobenzaprine [Flexeril] 10 mg PO QHS PRN #7 tablet 02/08/18 Unknown Rx Ibuprofen [Motrin] 600 mg PO Q8H PRN #30 tablet 02/08/18 Unknown Rx Allergies Allergy/AdvReac Type Severity Reaction Status Date / Time metronidazole [From Flagyl] Allergy Hives Verified 01/28/17 18:31 ED Review of Systems ROS: Stated complaint: LOWER BACK PAIN Other details as noted in HPI Constitutional: denies: chills, fever Eyes: denies: eye pain, eye discharge, vision change ENT: denies: ear pain, throat pain Respiratory: denies: cough, shortness of breath, wheezing Cardiovascular: denies: chest pain, palpitations Endocrine: no symptoms reported Gastrointestinal: denies: abdominal pain, nausea, diarrhea Genitourinary: denies: urgency, dysuria, discharge Musculoskeletal: back pain. denies: joint swelling, arthralgia Skin: denies: rash, lesions Neurological: denies: headache, weakness, paresthesias Psychiatric: denies: anxiety, depression Hematological/Lymphatic: denies: easy bleeding, easy bruising ED Past Medical Hx - Past Medical History Hx Seizures: Yes (CHILDHOOD) Additional medical history: ovarian cyst. HYPOGLYCEMIA. ANEMIA - Surgical History Additional Surgical History: bilateral salpingectomy, left ovarian cystectomy tubo ovarian abscess surgically drained in the past - Social History Smoking Status: Never Smoker - Medications Home Medications: Home Medications Medication Instructions Recorded Confirmed Last Taken Type Ibuprofen [Motrin 600 MG tab] 600 mg PO Q8H PRN #30 tablet 01/29/17 Unknown Rx oxyCODONE /ACETAMINOPHEN [Percocet 1 tab PO Q6HR PRN #30 tablet 01/29/17 Unknown Rx 5/325] Cyclobenzaprine [Flexeril] 10 mg PO QHS PRN #7 tablet 02/08/18 Unknown Rx Ibuprofen [Motrin] 600 mg PO Q8H PRN #30 tablet 02/08/18 Unknown Rx ED Physical Exam - General Limitations: No Limitations General appearance: alert, in no apparent distress - Head Head exam: Present: atraumatic, normocephalic - Eye Eye exam: Present: normal appearance Pupils: Present: normal accommodation - ENT ENT exam: Present: normal exam, mucous membranes moist - Neck Neck exam: Present: normal inspection, full ROM. Absent: tenderness, meningismus, lymphadenopathy - Respiratory Respiratory exam: Present: normal lung sounds bilaterally. Absent: respiratory distress, wheezes, rales, rhonchi, stridor, chest wall tenderness, accessory muscle use, decreased breath sounds, prolonged expiratory - Cardiovascular Cardiovascular Exam: Present: regular rate, normal rhythm, normal heart sounds. Absent: bradycardia, tachycardia, irregular rhythm, systolic murmur, diastolic murmur, rubs, gallop - GI/Abdominal GI/Abdominal exam: Present: soft, normal bowel sounds. Absent: distended, tenderness, guarding, rebound, rigid, diminished bowel sounds - Rectal Rectal exam: Present: deferred - Extremities Exam Extremities exam: Present: normal inspection, full ROM, normal capillary refill - Back Exam Back exam: Present: normal inspection, full ROM, paraspinal tenderness (lumbar region). Absent: tenderness, CVA tenderness (R), CVA tenderness (L), muscle spasm, vertebral tenderness, rash noted - Expanded Back Exam Expanded Back exam: Absent: saddle anesthesia Back exam: Negative Straight Leg Raising: Left, Right - Neurological Exam Neurological exam: Present: alert, oriented X3, normal gait - Psychiatric Psychiatric exam: Present: normal affect, normal mood - Skin Skin exam: Present: warm, dry, intact, normal color. Absent: rash ED Course Vital Signs 02/08/18 13:23 Temperature 98.6 F Pulse Rate 68 Respiratory 18 Rate Blood Pressure 118/72 O2 Sat by Pulse 100 Oximetry - Reevaluation(s) Reevaluation #1: 02/08/18 16:49 Patient is speaking in full sentences with no signs of distress noted. ED Medical Decision Making - Medical Decision Making This is a 27-year-old female that presents with low back strain. Patient is stable was examined by me. There is no spinal tenderness. There is no cauda equina syndrome during examination. No bladder or bowel instability. Patient received Toradol 60 mg IM in the ED which preceded his symptoms has resolved and subsided. UA obtained. Patient is discharged with muscle relaxant and Motrin. Patient was instructed not to operate any machinery while taking muscle relaxant as they cause her drowsiness. Patient was referred to Follow- up with a primary care doctor in 3-5 days or if symptoms worsen and continue return to emergency room as soon as possible. At time of discharge, the patient does not seem toxic or ill in appearance. No acute signs of distress noted. Patient agrees to discharge treatment plan of care. No further questions noted by the patient. This chart is dictated with using [employer] Critical care attestation.: If time is entered above; I have spent that time in minutes in the direct care of this critically ill patient, excluding procedure time. ED Disposition Clinical Impression: Low back strain Qualifiers: Encounter type: initial encounter Qualified Code(s): S39.012A - Strain of muscle, fascia and tendon of lower back, initial encounter Disposition: -01 TO HOME OR SELFCARE Is pt being admited?: No Does the pt Need Aspirin: No Condition: Stable Instructions: Ibuprofen (By mouth), Cyclobenzaprine (By mouth), Low Back Strain (ED) Additional Instructions: Follow-up with your primary care doctor in 3-5 days or if symptoms worsen such as bladder or bowel stability, chest pain, short of breath, numbness or tingling sensation in extremities, headache, dizziness, visual changes, nausea vomiting, or abdominal pain, return back to emergency room as was possible. Take ibuprofen and Flexeril as prescribed. Do not operate heavy machinery while taking Flexeril due to sedation Prescriptions: Cyclobenzaprine [Flexeril] 10 mg PO QHS PRN #7 tablet PRN Reason: Muscle Spasm Ibuprofen [Motrin] 600 mg PO Q8H PRN #30 tablet PRN Reason: Pain Referrals: PRIMARY CARE, [Primary Care Provider] - 3-5 Days NISHI CAMP MD [Staff Physician] - 3-5 Days [facility] [Outside] - 3-5 Days [facility] [Outside] - 3-5 Days Forms: Work/School Release Form(ED)
[2018-02-08 17:41] LABS: Bacteria,Urine 1+ /HPF (Negative); Bilirubin,Urine NEG (Negative); Blood,Urine NEG (Negative); Color,Urine Yellow (Yellow); Mucus,Urine 3+ /HPF; Protein,Urine <15 mg/dL mg/dL (Negative); Urobilinogen,Urine < 2.0 mg/dL (<2.0)
[2018-02-08 17:44] LABS: HCG Qualitative,Urine Negative (Negative)
== END 2018-02-08 18:59 | disposition home or self-care (01) ==
LOC: ED 12:09
DX: S39.012A Strain of muscle, fascia and tendon of lower back, initial encounter (principal); Z88.8 Allergy status to other drugs, medicaments and biological substances; X58.XXXA Exposure to other specified factors, initial encounter; Y93.89 Activity, other specified; Y92.89 Other specified places as the place of occurrence of the external cause; Y99.8 Other external cause status
CPT/HCPCS: 81001; 81025; 96372; 99283; J1885